=== PATIENT | male | born 1975 | race Caucasian/White ===

== ENCOUNTER 2017-07-09 13:11 | Emergency (ER) | payer OTHER ==
[~2017-07-09] VITALS: Ht 182.9 cm; Wt 97.5 kg
[2017-07-09 13:17] VITALS: BP 144/78
--- NOTE | 2017-07-09 13:29 | NUR ---
A/OX4, C/O RIGHT GREATER THAN LEFT NECK SWELLING X 3 DAYS. NAD VSS RR EVEN AND UNLABORED. PENDING ER MD EVALUATION
== END 2017-07-09 13:40 | disposition home or self-care (01) ==
LOC: ER 13:13
DX: I88.8 Other nonspecific lymphadenitis (principal); F17.200 Nicotine dependence, unspecified, uncomplicated; Z60.2 Problems related to living alone
CPT/HCPCS: A4606; Z7502; Z7610